=== PATIENT | male | born 1985 | race Caucasian/White ===

== ENCOUNTER 2021-11-27 20:09 | Emergency (ER) | payer OTHER, MEDICAID, SELFPAY ==
[2021-11-27 20:12] VITALS: BP 130/60; PULSE 106; RESP 16; TEMP 36.9; O2SAT 97
[2021-11-27 21:11] LABS: Add Manual Diff / Slide Review NO; Alanine Aminotransferase 18 IU/L (<50); Albumin 3.7 g/dL (3.5-5.0); Albumin Globulin Ratio 1.4 (1.0-2.8); Alkaline Phosphatase 52 U/L (38-126); Aspartate Aminotransferase 34 IU/L (17-59); BUN Creatinine Ratio 21.1 (6-22); Basophils Absolute Auto 100 /uL (0-100); Basophils Percent Auto 1.1 % (0-2); Bilirubin Total 0.4 mg/dL (0.2-1.3); Blood Urea Nitrogen 15 mg/dL (9-20); Calcium 8.1 mg/dL (8.4-10.2); Carbon Dioxide 28 mmol/L (22-32); Chloride 103 mmol/L (98-107); Eosinophils Absolute Auto 0 /uL (0-450); Eosinophils Percent Auto 0.2 % (2-4); Estimated Glomerular Filt Rate > 60 mL/min (>60); Globulin 2.7 g/dL (1.7-4.1); Glucose 99 mg/dL (70-100); HEMOLYSIS < 15 (0-50); Hematocrit 40.9 % (41-53); Hemoglobin 14.1 g/dL (13.5-17.5); Lymphocytes Absolute Auto 3400 /uL (1100-4500); Mean Corpuscular HGB Conc 34.4 % (30-36); Mean Corpuscular Hemoglobin 30.9 PG (26-34); Monocytes Absolute Auto 600 /uL (0-900); Monocytes Percent Auto 5.5 % (3-14); Neutrophils Absolute Auto 6800 /uL (1500-7000); Neutrophils Percent Auto 62.2 % (50-75); Platelet Count 301 X10^3/uL (150-400); Potassium 3.5 mmol/L (3.4-5.1); Red Blood Cell Count 4.54 X10^6/uL (4.5-5.9); Red Cell Distribution Width 13.3 % (11.6-14.8); Sodium 144 mmol/L (137-145); Total Protein 6.4 g/dL (6.3-8.2); White Blood Cell Count 10.9 X10^3/uL (4.5-11.0)
[2021-11-27 22:00] VITALS: BP 110/72; PULSE 102; RESP 20; O2SAT 97
[2021-11-27 23:00] VITALS: BP 109/67; PULSE 109; RESP 16; O2SAT 96
[2021-11-28] VITALS: BP 108/63; PULSE 95; RESP 16; O2SAT 95
--- NOTE | 2021-11-28 00:35 | PC.NURSE ---
pt aao x 3 ambulating out to nurses' station gait steady
[2021-11-28 00:38] LABS: Bilirubin Urine UA NEGATIVE (NEGATIVE); Color Urine UA YELLOW; Glucose Urine UA NEGATIVE (Negative); Ketones Urine UA NEGATIVE (NEGATIVE); Leukocyte Esterase Urine UA NEGATIVE (NEGATIVE); Nitrite Urine UA NEGATIVE (Negative); Occult Blood Urine UA NEGATIVE (Negative); Protein Urine UA TRACE (Negative); Urobilinogen Urine UA 0.2 E.U./dL (0.2); pH Urine UA 7.5 (4.5-8.0)
[2021-11-28 00:43] LABS: Appearance Urine UA Slightly Cloudy
[2021-11-28 00:49] LABS: RBC Urine None Seen (0-5/HPF); WBC Urine None Seen (0-5/HPF)
[2021-11-28 00:50] LABS: Amorphous Sediment Urine 4+; Bacteria Urine None Seen; Culture Indicated Urine Cult Not Indicated
--- NOTE | 2021-11-28 01:36 | PC.NURSE ---
Pt tolerated water by mouth.
[2021-11-28 02:00] VITALS: BP 101/62; PULSE 99; RESP 16; O2SAT 96
--- NOTE | 2021-11-28 02:04 | ED_ITS ---
HPI - Alcohol General Chief Complaint: Toxicology Problem Stated Complaint: alcohol intoxication Time Seen by Provider: 11/27/21 20:10 History of Present Illness HPI narrative: 36-year-old male nonsmoker presents by EMS after consuming a large amount of alcohol being found outside a local bar after vomiting. He denies any injury or other drugs. He states he drinks relatively frequently but had a bit more tonight while celebrating. He denies any fall or injury and states he started vomiting and sat down on the sidewalk at which point EMS was called. Review of Systems Review of Systems Narrative: GENERAL: Denies chills, fatigue, malaise, fever, sweats. HEENT: Denies sinus pain, ear pain, sore throat, difficulty swallowing, dizziness. RESPIRATORY: Denies dyspnea, cough, wheezing, hemoptysis, sputum. CARDIOVASCULAR: Denies chest pain, palpitations, orthopnea, edema, GASTROINTESTINAL: See HPI : Denies dysuria, frequency, incontinence, hematuria, urinary retention. MUSCULOSKELETAL: denies weakness, joint pain, or bony pain SKIN: Denies rash, skin lesions, or other NEUROLOGIC: Denies weakness, headache, numbness, change in speech, confusion, seizures, incoordination. PSYCHIATRIC: No concerning psychosocial issues. 12 point review of systems is negative except for those stated above Exam Narrative Exam Narrative: GENERAL: [36] year old patient appears stated age. Well-developed patient, in mild distress. Holding an emesis bag, slurring his words, smells of alcohol HEAD: Atraumatic. Normocephalic. No contusion, abrasion or evidence of depressed skull fracture EYES: Pupils equal round and reactive. Extraocular motions intact. No scleral icterus. No injection or drainage. ENT: Nose without bleeding, purulent drainage. Throat without erythema, tonsillar hypertrophy or exudate. Airway patent. NECK: Trachea midline. Non tender CARDIOVASCULAR: Regular rate and rhythm without murmurs, gallops, or rubs. RESPIRATORY: Clear to auscultation. Breath sounds equal bilaterally. No wheezes, rales, or rhonchi. GASTROINTESTINAL: Abdomen soft, non-tender, nondistended. EXTREMITIES: No edema or joint tenderness. BACK: Nontender without deformity or crepitance. No flank tenderness. NEURO: AOx3. SKIN: No rash or erythema of visible areas Initial Vital Signs Initial Vital Signs: Vital Signs Temperature 98.4 F 11/27/21 20:12 Pulse Rate 106 H 11/27/21 20:12 Respiratory Rate 16 11/27/21 20:12 Blood Pressure 130/60 11/27/21 20:12 Pulse Oximetry 97 11/27/21 20:12 Oxygen Delivery Method 11/27/21 20:12 Course Orders Ordered: ED Orders 11/27/21 20:50 CBC Auto Diff [Complete Blood Count AUTO DIFF] Stat CMP [Comprehensive Metabolic Panel] Stat 11/28/21 00:20 Urinalysis and Microscopic Stat Reevaluation(s) Reevaluation #1: Patient continues to improve, he is now speaking clearly without slurring words, able to ambulate straight line and tolerating orals. Reevaluation #2: patient requesting DC. He does NOT want to call anyone, states he is only a few blocks away. He continues to speak clearly without slurring and is able to ambulate in a straight line with a steady gait. He demonstrates capacity to make this decision. Vital Signs Vital signs: Vital Signs - 8 hr 11/27/21 20:12 11/27/21 22:00 Temperature 98.4 F Pulse Rate 106 H 102 H Respiratory Rate 16 20 Blood Pressure 130/60 110/72 Pulse Oximetry 97 97 Oxygen Delivery Method Room Air Room Air MDM - Alcohol Lab Data Result diagrams: 11/27/21 20:50 11/27/21 20:50 Labs: Lab Results 11/27/21 11/27/21 11/28/21 Range/Units 20:50 20:50 00:20 WBC 10.9 (4.5-11.0) X10^3/uL RBC 4.54 (4.5-5.9) X10^6/uL Hgb 14.1 (13.5-17.5) g/dL Hct 40.9 L (41-53) % MCV 90.0 (80-100) fL MCH 30.9 (26-34) PG MCHC 34.4 (30-36) % RDW 13.3 (11.6-14.8) % Plt Count 301 (150-400) X10^3/uL Neut % (Auto) 62.2 (50-75) % Lymph % (Auto) 31.0 (25-40) % [place] % (Auto) 5.5 (3-14) % Eos % (Auto) 0.2 L (2-4) % Baso % (Auto) 1.1 (0-2) % Neut # (Auto) 6800 (5835-0022) /uL Lymph # (Auto) 3400 (6127-0306) /uL [place] # (Auto) 600 (0-900) /uL Eos # (Auto) 0 (0-450) /uL Baso # (Auto) 100 (0-100) /uL Sodium 144 (137-145) mmol/L Potassium 3.5 (3.4-5.1) mmol/L Chloride 103 (98-107) mmol/L Carbon Dioxide 28 (22-32) mmol/L BUN 15 (9-20) mg/dL Creatinine 0.71 (0.66-1.25) mg/dL Estimated GFR > 60 (>60) mL/min BUN/Creatinine Ratio 21.1 (6-22) Glucose 99 (70-100) mg/dL Calcium 8.1 L (8.4-10.2) mg/dL Total Bilirubin 0.4 (0.2-1.3) mg/dL AST 34 (17-59) IU/L ALT 18 (<50) IU/L Alkaline Phosphatase 52 (38-126) U/L Total Protein 6.4 (6.3-8.2) g/dL Albumin 3.7 (3.5-5.0) g/dL Globulin 2.7 (1.7-4.1) g/dL Albumin/Globulin Ratio 1.4 (1.0-2.8) Urine Color Yellow Urine Appearance Slightly cloudy Urine pH 7.5 (4.5-8.0) Ur Specific [place] 1.010 (1.000-1.035) Urine Protein Trace H (Negative) Urine Glucose (UA) Negative (Negative) g/dL Urine Ketones Negative (NEGATIVE) Urine Occult Blood Negative (Negative) Urine Nitrate Negative (Negative) Urine Bilirubin Negative (NEGATIVE) Urine Urobilinogen 0.2 (0.2) E.U./dL Ur Leukocyte Esterase Negative (NEGATIVE) Urine RBC None seen (0-5/HPF) Urine WBC None seen (0-5/HPF) Amorphous Sediment 4+ Urine Bacteria None seen (None) Ur Culture Indicated? Cult not indicated Discharge Plan Departure Patient Disposition: Home Clinical Impression: Alcoholic intoxication Instructions: DI for Alcohol Use Disorder Activity Restrictions/Additional Instructions: *You have been diagnosed with [alcohol abuse] *What to do: *Please continue to take your regular medications as directed. [ ] New medication prescriptions sent to your pharmacy: [ ] [ ] New medication written as a paper prescription [x ] No new medications given *Please follow up with your primary care provider in 2-3 days, call for an appointment. Let them know you were seen in the Emergency Department and that we ask that you be seen in follow up. We will electronically transmit a record of today's note if your PCP is in our system *If you do not have a primary care provider please contact the [facility] Resource line at [phone]. They will ask some questions about your medical history and help get you set up with a doctor in the community. *Return to Emergency Department if you should have any new, worsening or concerning symptoms, such as [fever greater than 101 F, shaking chills, worsening pain, persistent vomiting or other bothersome symptoms]
== END 2021-11-28 02:21 | disposition home or self-care (01) ==
PROVIDERS: Emergency Provider Emergency Medicine
DX: F10.129 Alcohol abuse with intoxication, unspecified (principal)
CPT/HCPCS: 36415; 80053; 81001; 85025; 99281; 99283

== ENCOUNTER 2021-12-18 13:29 | Emergency (ER) | payer OTHER, MEDICAID, SELFPAY ==
--- NOTE | 2021-12-18 13:39 | ED.ALCOHOL ---
HPI - Alcohol General Chief Complaint: Toxicology Problem Stated Complaint: intoxicated Time Seen by Provider: 12/18/21 13:30 History of Present Illness HPI narrative: The patient is a 36-year-old male history of alcohol abuse presenting today with intoxication. He apparently had some vomiting as at home this morning he is living with his dad he recently got out of full treatment about 2 weeks ago dad took him back to help him get about on back on his feet. However he started drinking again. Vomited today. He then went to the [facility] local grocery store when he vomited in the store EMS was called. EMS reports no hematemesis. Possible suicidal ideation however patient is quite adamant about SI at this time. He was resistant to come in which required 3 police officers. He has no thoughts of homicide. He has clear speech. He does not want to be here. He is offered blood work IV fluids food which he declines at this time. Review of Systems Review of Systems Narrative: See HPI Exam Initial Vital Signs Initial Vital Signs: GENERAL: Alert thin 36-year-old male HEENT: Head atraumatic,EOMI, pupils reactive, face symmetric, moist mucous membranes CARDIOVASCULAR: Regular rate and rhythm without murmurs, rubs or gallops. RESPIRATORY: Breath sounds equal bilaterally, no wheezes rales or rhonchi. ABDOMEN: Soft, nontender. Normoactive bowel sounds all 4 quadrants. No guarding or rebound. EXTREMITIES: Normal range of motion, no clubbing or edema. Neurovascularly intact NEUROLOGICAL: Moving all extremities SKIN: Warm, dry, no laceration, no petechiae, no rashes or lesions. MDM - Alcohol MDM Narrative Medical decision making narrative: Patient is declining all care he is not suicidal or homicidal. He is intoxicated but has clear speech and steady gait. Does not meet any sort of involuntary criteria at this time. He refused vitals. I spoke on the phone with patient's dad he was quite concerned about him but understands the process. Patient walked out before anything could be done. Discharge Plan Departure Patient Disposition: Home Clinical Impression: Alcoholic intoxication Instructions: DI for Alcohol Use Disorder Visit Report Forms: Patient Portal/API
== END 2021-12-18 13:41 | disposition home or self-care (01) ==
PROVIDERS: Emergency Provider Emergency Medicine
DX: F10.129 Alcohol abuse with intoxication, unspecified (principal)
CPT/HCPCS: 99281

== ENCOUNTER 2021-12-20 03:03 | Emergency (ER) | payer OTHER, MEDICAID, SELFPAY ==
--- NOTE | 2021-12-20 03:13 | ED_ITS ---
HPI - Altered Mental Status <Abelino Love DO - Last Filed: 12/21/21 03:06> General Chief Complaint: Altered Mental Status Stated Complaint: Decreased LOC Time Seen by Provider: 12/20/21 03:11 History of Present Illness HPI narrative: 36-year-old male nonsmoker with history of alcohol abuse returns for evaluation. Patient was reportedly found outside and EMS was activated by [employer] for evaluation fearing that he is significantly intoxicated and a risk to harm himself. He has been vomiting and though guarding his airway is unable to demonstrate capacity to make his own decisions and was brought for evaluation. He was brought to the emergency department yesterday under similar circumstances and police and EMS had activated the [place] pathway but over the course of the visit he was able to demonstrate capacity and thought not to meet criteria. Per EMS on scene who has been in close contact with the patient's father he had recently come here from [place] as his mother stated that he can no longer stay with him. His father lives here locally and is apparently a mental health professional. There is report through EMS that he told him yesterday that he is unable to care for himself and poses a significant threat to himself and was an advocate for bringing the patient to the emergency department. Patient is awake but slurring words. He denies suicidal or homicidal ideation. He understands that he is in the hospital and he is asking for help getting into a detox facility Related Data Allergies Allergy/AdvReac Type Severity Reaction Status Date / Time No Known Drug Allergies Allergy Verified 12/20/21 18:52 Review of Systems <DO Silvio Charles Last Filed: 12/21/21 03:06> Review of Systems Narrative: GENERAL: Denies chills, fatigue, malaise, fever, sweats. HEENT: Denies sinus pain, ear pain, sore throat, difficulty swallowing, dizziness. RESPIRATORY: Denies dyspnea, cough, wheezing, hemoptysis, sputum. CARDIOVASCULAR: Denies chest pain, palpitations, orthopnea, edema, GASTROINTESTINAL: See HPI : Denies dysuria, frequency, incontinence, hematuria, urinary retention. MUSCULOSKELETAL: denies weakness, joint pain, or bony pain SKIN: Denies rash, skin lesions, or other NEUROLOGIC: Denies weakness, headache, numbness, change in speech, confusion, seizures, incoordination. PSYCHIATRIC: See HPI 12 point review of systems is negative except for those stated above Patient History <Abelino Love DO - Last Filed: 12/21/21 03:06> Social History Smoking Status: Unknown if ever smoked alcohol intake frequency: 3 or more drinks per day Alcohol type: beer Exam <Abelino Love DO - Last Filed: 12/21/21 03:06> Narrative Exam Narrative: GENERAL: [36] year old patient appears stated age. A bit disheveled, smells of alcohol, slurring his words but aware of his location and name, unaware of the date. HEAD: Atraumatic. Normocephalic. EYES: Pupils equal round and reactive. Extraocular motions intact. No scleral icterus. No injection or drainage. ENT: Nose without bleeding, purulent drainage. Throat without erythema, tonsillar hypertrophy or exudate. Airway patent. NECK: Trachea midline. Non tender CARDIOVASCULAR: Regular rate and rhythm without murmurs, gallops, or rubs. RESPIRATORY: Clear to auscultation. Breath sounds equal bilaterally. No wheezes, rales, or rhonchi. GASTROINTESTINAL: Abdomen soft, non-tender, nondistended. EXTREMITIES: No edema or joint tenderness. BACK: Nontender without deformity or crepitance. No flank tenderness. NEURO: Cranial nerves 2-12 grossly intact SKIN: No rash or erythema of visible areas Initial Vital Signs Initial Vital Signs: Vital Signs Temperature 97.3 F L 12/20/21 03:20 Pulse Rate 106 H 12/20/21 03:20 Respiratory Rate 12/20/21 03:20 Blood Pressure 124/74 12/20/21 03:20 Pulse Oximetry 97 12/20/21 03:20 Oxygen Delivery Method 12/20/21 03:20 <Zari Baldwin DO - Last Filed: 12/20/21 19:45> Initial Vital Signs Initial Vital Signs: Vital Signs Temperature 97.3 F L 12/20/21 03:20 Pulse Rate 106 H 12/20/21 03:20 Respiratory Rate 20 12/20/21 03:20 Blood Pressure 124/74 12/20/21 03:20 Pulse Oximetry 97 12/20/21 03:20 Oxygen Delivery Method 12/20/21 03:20 Course <DO Silvio Charles Last Filed: 12/21/21 03:06> Orders Ordered: Discontinued Medications Al Hydrox/Mg Hydrox/Simethicone 20 ml/ Lidocaine HCl 15 ml 0 ml PO NOW ONE Stop: 12/20/21 08:03 Last Admin: 12/20/21 08:38 Dose: Not Given Documented By: MICHAEL Ondansetron HCl (Ondansetron 4 Mg/2 Ml Inj) 4 mg IV NOW ONE Stop: 12/20/21 03:11 Last Admin: 12/20/21 03:30 Dose: 4 mg Documented By: CHARLEEN Ondansetron HCl (Ondansetron 4 Mg/2 Ml Inj) 4 mg IV Q2HR PRN PRN Reason: Nausea And Vomiting Vital Signs Vital signs: Vital Signs - 8 hr 12/20/21 03:20 12/20/21 04:53 Temperature 97.3 F L Pulse Rate 106 H 100 H Respiratory Rate 20 18 Blood Pressure 124/74 127/77 Pulse Oximetry 97 96 Oxygen Delivery Method Room Air Room Air <Zari Baldwin DO - Last Filed: 12/20/21 19:45> Orders Ordered: Discontinued Medications Al Hydrox/Mg Hydrox/Simethicone 20 ml/ Lidocaine HCl 15 ml 0 ml PO NOW ONE Stop: 12/20/21 08:03 Last Admin: 12/20/21 08:38 Dose: Not Given Documented By: MICHAEL Ondansetron HCl (Ondansetron 4 Mg/2 Ml Inj) 4 mg IV NOW ONE Stop: 12/20/21 03:11 Last Admin: 12/20/21 03:30 Dose: 4 mg Documented By: CHARLEEN Ondansetron HCl (Ondansetron 4 Mg/2 Ml Inj) 4 mg IV Q2HR PRN PRN Reason: Nausea And Vomiting Vital Signs Vital signs: Vital Signs - 8 hr 12/20/21 03:20 12/20/21 04:53 Temperature 97.3 F L Pulse Rate 106 H 100 H Respiratory Rate 20 18 Blood Pressure 124/74 127/77 Pulse Oximetry 97 96 Oxygen Delivery Method Room Air Room Air MDM - Altered Mental Status <DO Silvio Charles Last Filed: 12/21/21 03:06> Lab Data Result diagrams: 12/20/21 03:15 12/20/21 03:15 Labs: Lab Results 12/20/21 12/20/2112/20/22 Range/Units 03:15 03:15 03:15 WBC 10.7 (4.5-11.0) X10^3/uL RBC 4.56 (4.5-5.9) X10^6/uL Hgb 14.1 (13.5-17.5) g/dL Hct 40.9 L (41-53) % MCV 89.8 (80-100) fL MCH 30.9 (26-34) PG MCHC 34.5 (30-36) % RDW 14.2 (11.6-14.8) % Plt Count 339 (150-400) X10^3/uL Neut % (Auto) 66.1 (50-75) % Lymph % (Auto) 27.5 (25-40) % [place] % (Auto) 6.0 (3-14) % Eos % (Auto) 0.1 L (2-4) % Baso % (Auto) 0.3 (0-2) % Neut # (Auto) 7100 H (4735-4925) /uL Lymph # (Auto) 2900 (5569-2548) /uL [place] # (Auto) 600 (0-900) /uL Eos # (Auto) 0 (0-450) /uL Baso # (Auto) 0 (0-100) /uL Sodium 146 H (137-145) mmol/L Potassium 3.7 (3.4-5.1) mmol/L Chloride 104 (98-107) mmol/L Carbon Dioxide 31 (22-32) mmol/L BUN 13 (9-20) mg/dL Creatinine 0.60 L (0.66-1.25) mg/dL Estimated GFR > 60 (>60) mL/min BUN/Creatinine Ratio 21.7 (6-22) Glucose 98 (70-100) mg/dL Calcium 7.8 L (8.4-10.2) mg/dL Total Bilirubin 0.5 (0.2-1.3) mg/dL AST 78 H (17-59) IU/L ALT 38 (<50) IU/L Alkaline Phosphatase 58 (38-126) U/L Total Protein 6.9 (6.3-8.2) g/dL Albumin 4.1 (3.5-5.0) g/dL Globulin 2.8 (1.7-4.1) g/dL Albumin/Globulin Ratio 1.5 (1.0-2.8) Lipase 376 H (23-300) U/L Ethyl Alcohol 476 H* ( - 10) mg/dL <Zari Baldwin, DO - Last Filed: 12/20/21 19:45> Lab Data Labs: Lab Results 12/20/21 12/20/21 12/20/21 Range/Units 03:15 03:15 03:15 WBC 10.7 (4.5-11.0) X10^3/uL RBC 4.56 (4.5-5.9) X10^6/uL Hgb 14.1 (13.5-17.5) g/dL Hct 40.9 L (41-53) % MCV 89.8 (80-100) fL MCH 30.9 (26-34) PG MCHC 34.5 (30-36) % RDW 14.2 (11.6-14.8) % Plt Count 339 (150-400) X10^3/uL Neut % (Auto) 66.1 (50-75) % Lymph % (Auto) 27.5 (25-40) % [place] % (Auto) 6.0 (3-14) % Eos % (Auto) 0.1 L (2-4) % Baso % (Auto) 0.3 (0-2) % Neut # (Auto) 7100 H (3301-9629) /uL Lymph # (Auto) 2900 (9471-8091) /uL [place] # (Auto) 600 (0-900) /uL Eos # (Auto) 0 (0-450) /uL Baso # (Auto) 0 (0-100) /uL Sodium 146 H (137-145) mmol/L Potassium 3.7 (3.4-5.1) mmol/L Chloride 104 (98-107) mmol/L Carbon Dioxide 31 (22-32) mmol/L BUN 13 (9-20) mg/dL Creatinine 0.60 L (0.66-1.25) mg/dL Estimated GFR > 60 (>60) mL/min BUN/Creatinine Ratio 21.7 (6-22) Glucose 98 (70-100) mg/dL Calcium 7.8 L (8.4-10.2) mg/dL Total Bilirubin 0.5 (0.2-1.3) mg/dL AST 78 H (17-59) IU/L ALT 38 (<50) IU/L Alkaline Phosphatase 58 (38-126) U/L Total Protein 6.9 (6.3-8.2) g/dL Albumin 4.1 (3.5-5.0) g/dL Globulin 2.8 (1.7-4.1) g/dL Albumin/Globulin Ratio 1.5 (1.0-2.8) Lipase 376 H (23-300) U/L Ethyl Alcohol 476 H* ( - 10) mg/dL MDM Narrative Medical decision making narrative: MALDONADONICK-patient signed out to me by Dr. Love of seen evaluated patient myself. He is awake alert he has a steady gait. His 2nd visit to the ED in about 2 days for alcohol intoxication. He denies suicidal ideations or homicidal ideations. Patient is adamant about leaving. States that his mom will help get him into detox. He is offered social work your help getting into detox here. At this time he does not meet involuntary criteria. If repeat visit may consider a [facility] Discharge Plan Departure Patient Disposition: Home Clinical Impression: Alcoholic intoxication Instructions: Alcohol Use Disorder Activity Restrictions/Additional Instructions: *You have been diagnosed with alcohol intoxication *What to do: I strongly encourage you to go to detox and withdrawal from alcohol do not do this on your own *Continue to take medications as directed *Follow up with your primary care provider in 2-3 days or call [phone] *Return to ER if you should have any new, worsening or concerning symptoms Visit Report Forms: Patient Portal/API
[2021-12-20 03:20] VITALS: BP 124/74; PULSE 106; RESP 20; TEMP 36.3; O2SAT 97
[2021-12-20 03:24] LABS: Add Manual Diff / Slide Review NO; Basophils Absolute Auto 0 /uL (0-100); Basophils Percent Auto 0.3 % (0-2); Eosinophils Absolute Auto 0 /uL (0-450); Eosinophils Percent Auto 0.1 % (2-4); Hematocrit 40.9 % (41-53); Hemoglobin 14.1 g/dL (13.5-17.5); Lymphocytes Absolute Auto 2900 /uL (1100-4500); Lymphocytes Percent Auto 27.5 % (25-40); Mean Corpuscular HGB Conc 34.5 % (30-36); Mean Corpuscular Hemoglobin 30.9 PG (26-34); Mean Corpuscular Volume 89.8 fL (80-100); Monocytes Absolute Auto 600 /uL (0-900); Neutrophils Absolute Auto 7100 /uL (1500-7000); Neutrophils Percent Auto 66.1 % (50-75); Platelet Count 339 X10^3/uL (150-400); Red Blood Cell Count 4.56 X10^6/uL (4.5-5.9); Red Cell Distribution Width 14.2 % (11.6-14.8); White Blood Cell Count 10.7 X10^3/uL (4.5-11.0)
[2021-12-20 03:28] LABS: Alanine Aminotransferase 38 IU/L (<50); Albumin 4.1 g/dL (3.5-5.0); Albumin Globulin Ratio 1.5 (1.0-2.8); Alkaline Phosphatase 58 U/L (38-126); Aspartate Aminotransferase 78 IU/L (17-59); BUN Creatinine Ratio 21.7 (6-22); Bilirubin Total 0.5 mg/dL (0.2-1.3); Blood Urea Nitrogen 13 mg/dL (9-20); Calcium 7.8 mg/dL (8.4-10.2); Carbon Dioxide 31 mmol/L (22-32); Chloride 104 mmol/L (98-107); Estimated Glomerular Filt Rate > 60 mL/min (>60); Globulin 2.8 g/dL (1.7-4.1); Glucose 98 mg/dL (70-100); HEMOLYSIS 33 (0-50); Potassium 3.7 mmol/L (3.4-5.1); Sodium 146 mmol/L (137-145); Total Protein 6.9 g/dL (6.3-8.2)
[2021-12-20] MEDS: ONDANSETRON 4 MG/2 ML INJ IV (03:30)
[2021-12-20 03:42] LABS: Ethanol (ETOH) 476 mg/dL
[2021-12-20 04:53] VITALS: BP 127/77; PULSE 100; RESP 18; O2SAT 96
[2021-12-20 08:00] VITALS: BP 110/65; PULSE 77; RESP 18; O2SAT 98
[2021-12-20 08:00] LABS: Lipase 376 U/L (23-300)
== END 2021-12-20 08:40 | disposition home or self-care (01) ==
PROVIDERS: Emergency Medicine; Emergency Provider Emergency Medicine
DX: F10.129 Alcohol abuse with intoxication, unspecified (principal); Y90.8 Blood alcohol level of 240 mg/100 ml or more
CPT/HCPCS: 80053; 80320; 83690; 85025; 93005; J2405

== ENCOUNTER 2021-12-20 18:29 | Emergency (ER) | payer OTHER, MEDICAID, SELFPAY ==
[2021-12-20 18:40] VITALS: BP 134/68; PULSE 108; RESP 20; O2SAT 96; BMI 21.7
--- NOTE | 2021-12-20 18:50 | DI.CT.S_ITS ---
PROCEDURE: CT HEAD/BRAIN WO CON INDICATIONS: dizzy TECHNIQUE: Noncontrast 4.5 mm thick angled axial sections acquired from the foramen magnum to the vertex, with coronal and sagittal reformats. For radiation dose reduction, the following was used: automated exposure control, adjustment of mA and/or kV according to patient size. COMPARISON: None. FINDINGS: Image quality: Mild streak artifact can be seen through the skull base. CSF spaces: Basal cisterns are patent. No extra-axial fluid collections. Ventricles are normal in size and shape. Brain: No midline shift. No intracranial masses or hemorrhage. Johnson-white matter interface is normal. Skull and face: Calvarium and visualized facial bones are intact, without suspicious lesions. Sinuses: Visualized sinuses and mastoids are clear. IMPRESSION: Unremarkable noncontrast head CT. Dictated by: Geo Del Angel M.D. on 12/20/2021 at 18:04 Approved by: Geo Del Angel M.D. on 12/20/2021 at 18:05
[2021-12-20] MEDS: ONDANSETRON 4 MG/2 ML INJ IV (19:18)
[2021-12-20] MEDS: SODIUM CHLORIDE 0.9% 1,000 ML 1000 ML IV (19:18)
[2021-12-20 19:22] VITALS: PULSE 84; O2SAT 100
[2021-12-20 19:23] VITALS: BP 137/69; PULSE 82; RESP 21; O2SAT 100
--- NOTE | 2021-12-20 19:24 | CM.SWNOTE ---
ADVANCE AGENT Assessment ADVANCE AGENT - Die Keeper Assessment ADVANCE AGENT/Die Keeper Assessment Time Spent with Patient Start date 12/20/21 Visit Start Time 18:40 End date 12/20/21 Visit End Time 18:55 Total time Care Management spent on 15 minutes patient visit-in minutes Substance Abuse Screening Include Onset, Duration, Intensity Presenting Problem Patient presents to ED due to concern for stroke symptoms. Per patient and patient's father they were on their way to [facility] facility when patient presented with these symptoms. Patient endorses his face and legs are tingling all over and he is numb and sore. Precipitating Event(s) Patient endorses his last drink was yesterday afternoon. Patient states he is experiencing shakes nausea and throwing up. This is patient' s 2nd ED visit today and patient has 3 visits this month in regards to ETOH. Patient Strengths Patient is seeking help and has detox bed available for him this evening. Current Behavioral Health Provider(s) Patient endorses he used to Include Facility, Provider, Ph. # have a therapist and psychiatrist in [place]. Patient endorses he does SAMAN outpatient services with [facility] in [place]. Family Hx of Behavioral Abuse None reported Rehab Facilities? ((Date(s), Location(s) Patient endorses hx of detox ) at [facility] and hx of inpatient. History of Withdrawal? Seizures? Patient presents with shakiness, nausea, and throwing up symptoms. Psychosocial information & Support Patient is 36 y/o male who is Systems currently residing with his father in [place], patient states he was previously living in [place]. Patient identified his mother and father as supports. School/Work Patient not currently working Legal Concerns Legal Matters - Outstanding Issues None reported Mental Status Orientation (Person/Place/Time) A/O to person, place and self. Patient not able to identify date. Stated Mood sore Affect (Congruent with Mood?) anxious/euthymic, full range, congruent with mood Thought Content - Specify/Describe None reported Obsessions, Delusions, Hallucinations Thought Processes (Ssbnqgp-Mluuwtmq-Bcdv coherent Cfdlnash-Pqqrnqiz-Teuihhdndq- Oovymcpvsltwuk-Jbbeljn-Rgpzbihaxska- Thought Blocking) Speech (Mgpgae-Skne-Emjguou-Rapid-Soft- slow/shaky Loud-Pressured) Motor (Volypv-Wvftuxqdq-Yohe-Other) Patient presents as shaky, congruent with concern for presentation to ED. Insight (Nnmb-Zbrq-Dqqc/Limited) fair Judgement (Oavd-Qozt-Lyrg/Limited) fair Impulse Control (Adequate-Impaired) adequate Memory (Tvjnnjazj-Akcwyj-Fnzmor, fairly intact, patient does Impaired-Intact) not recall today's date. Concentration (Intact-Impaired) intact Attention (Intact-Impaired) intact Behavior (Appropriate-Inappropriate) appropriate Additional Comment Patient presents as calm, cooperative and communicative. Risk Assessment Suicidal Ideation (Plan) No Homicidal Ideation (Plan) No Comment Patient denies HI and SI. Patient endorses and agrees with statement from earlier that he called his mother a few days ago and stated that he wanted to kill himself. Patient endorses this statement was made when he was under the influence of ETOH. Intervention Intervention ADVANCE AGENT enters triage room to meet with patient, present in room is women nurse, and patient's father. Patient endorses agreement to discuss patient's presentation with ADVANCE AGENT in room . Patient endorses his concern for stroke symptoms, patient and father endorse that they were on their way to patient's secured bed at [facility] facility for 1899. ADVANCE AGENT calls [facility] regarding patient and it is reported that patient will still have secured bed if medical clearance d/c paperwork is faxed to them and father or patient call upon d/c and when they are on their way to [facility] detox facility. Patient denies interest in inpatient treatment, but states he plans to continue IOP with [facility] upon d/ c from detox. It is the opinion of this ADVANCE AGENT that patient is appropriate for and will benefit from detox stabilization. Patient's father agrees to provide ride for patient to detox facility. ADVANCE AGENT to review the above with ED provider Dr. Love. Plan RA Plan Patient to d/c with father upon medical clearance, father to transport patient to [facility] facility. ED team to fax records to [facility]. JEFERSON Price
[2021-12-20 19:25] LABS: Add Manual Diff / Slide Review NO; Basophils Absolute Auto 100 /uL (0-100); Basophils Percent Auto 1.2 % (0-2); Eosinophils Absolute Auto 0 /uL (0-450); Hematocrit 35.1 % (41-53); Hemoglobin 12.4 g/dL (13.5-17.5); Lymphocytes Absolute Auto 2000 /uL (1100-4500); Lymphocytes Percent Auto 19.2 % (25-40); Mean Corpuscular HGB Conc 35.2 % (30-36); Mean Corpuscular Hemoglobin 31.1 PG (26-34); Mean Corpuscular Volume 88.2 fL (80-100); Monocytes Absolute Auto 600 /uL (0-900); Monocytes Percent Auto 5.6 % (3-14); Neutrophils Absolute Auto 7800 /uL (1500-7000); Platelet Count 309 X10^3/uL (150-400); Red Blood Cell Count 3.98 X10^6/uL (4.5-5.9); Red Cell Distribution Width 13.6 % (11.6-14.8); White Blood Cell Count 10.5 X10^3/uL (4.5-11.0)
[2021-12-20 19:30] VITALS: BP 132/61; PULSE 76; O2SAT 98
[2021-12-20 19:37] LABS: Acetaminophen < 10 ug/mL (10-30); Alanine Aminotransferase 36 IU/L (<50); Albumin 4.4 g/dL (3.5-5.0); Albumin Globulin Ratio 1.6 (1.0-2.8); Alkaline Phosphatase 67 U/L (38-126); Aspartate Aminotransferase 60 IU/L (17-59); BUN Creatinine Ratio 22.4 (6-22); Bilirubin Total 1.7 mg/dL (0.2-1.3); Blood Urea Nitrogen 13 mg/dL (9-20); Calcium 8.8 mg/dL (8.4-10.2); Carbon Dioxide 25 mmol/L (22-32); Chloride 94 mmol/L (98-107); Estimated Glomerular Filt Rate > 60 mL/min (>60); Ethanol (ETOH) < 10 mg/dL; Globulin 2.7 g/dL (1.7-4.1); Glucose 142 mg/dL (70-100); HEMOLYSIS 19 (0-50); Potassium 2.8 mmol/L (3.4-5.1); Salicylate < 1.0 mg/dL (<20); Sodium 131 mmol/L (137-145); Total Protein 7.1 g/dL (6.3-8.2)
--- NOTE | 2021-12-20 19:45 | ED_ITS ---
HPI - Alcohol General Chief Complaint: Toxicology Problem Stated Complaint: STOKE TINGLING OF FACE AND HANDS Time Seen by Provider: 12/20/21 18:50 Source: patient Mode of arrival: Wheelchair History of Present Illness HPI narrative: 36-year-old male heavy drinker returns for the 3rd time in 2 days with a chief complaint of feeling dizzy with tingling of his face and hands. He was discharged this morning after sobering up and states he went home and has been vomiting countless times. He has a mild headache but denies any chest pain or shortness of breath. He denies abdominal pain but is nauseated. He denies any suicidal or homicidal ideation. He denies any visual or auditory hallucinations. He feels a bit sweaty, shaky, anxious and agitated. He is requesting help with detox. His last drink was sometime yesterday afternoon. He states he has been drinking upwards of 1/5 of vodka per day including some beers for the past 4-5 days. He was last in any kind of detox program for 5 months ago. He is gone through withdrawals in the past but has never had any seizures. He denies any trauma, falls or injury Related Data Allergies Allergy/AdvReac Type Severity Reaction Status Date / Time No Known Drug Allergies Allergy Verified 12/20/21 18:52 Review of Systems Review of Systems Narrative: GEN: See HPI HEENT: Denies sinus pain, ear pain, sore throat, difficulty swallowing, dizziness. RESPIRATORY: Denies dyspnea, cough, wheezing, hemoptysis, sputum. CARDIOVASCULAR: See HPI, GASTROINTESTINAL: See HPI : Denies dysuria, frequency, incontinence, hematuria, urinary retention. MUSCULOSKELETAL: See HPI SKIN: Denies rash, skin lesions, or other NEUROLOGIC: See HPI PSYCHIATRIC: No concerning psychosocial issues. 12 point review of systems is negative except for those stated above Patient History Social History Smoking Status: Unknown if ever smoked Smoking Status: Unknown if ever smoked alcohol intake frequency: 3 or more drinks per day Alcohol type: beer Substance Use Type: unknown Exam Narrative Exam Narrative: GENERAL: [36] year old patient appears stated age. Well-developed patient, in mild distress. A bit shaky and tremulous, anxious HEAD: Atraumatic. Normocephalic. EYES: Pupils equal round and reactive. Extraocular motions intact. No scleral icterus. No injection or drainage. ENT: Nose without bleeding, purulent drainage. Throat without erythema, tonsillar hypertrophy or exudate. Airway patent. NECK: Trachea midline. Non tender CARDIOVASCULAR: Regular rate and rhythm without murmurs, gallops, or rubs. RESPIRATORY: Clear to auscultation. Breath sounds equal bilaterally. No wheezes, rales, or rhonchi. GASTROINTESTINAL: Abdomen soft, non-tender, nondistended. EXTREMITIES: Carpal pedal spasms are present, tremors noted with arms extended BACK: Nontender without deformity or crepitance. No flank tenderness. NEURO: AOx3. SKIN: Minimal diaphoresis No rash or erythema of visible areas Initial Vital Signs Initial Vital Signs: Vital Signs Pulse Rate 108 H 12/20/21 18:40 Respiratory Rate 20 12/20/21 18:40 Blood Pressure 134/68 12/20/21 18:40 Pulse Oximetry 96 12/20/21 18:40 Oxygen Delivery Method 12/20/21 18:40 Course Course Course Narrative: [facility] for Alcohol Withdrawal from [facility] on 12/20/2021 All calculations should be rechecked by clinician prior to use RESULT SUMMARY: 22 points Patients with scores >=0 frequently require medication for withdrawal, and may also require admission to the ICU for observation for seizures or development of delirium tremens, and more frequent medication dosing. INPUTS: Nausea/vomiting ?> 6 = (More severe symptoms) Tremor ?> 4 = Moderate, with patient's arms extended Paroxysmal sweats ?> 3 = (More severe symptoms) Anxiety ?> 4 = Moderately anxious, or guarded, so anxiety is inferred Agitation ?> 3 = (More severe symptoms) Tactile disturbances ?> 0 = None Auditory disturbances ?> 0 = Not present Visual disturbances ?> 0 = Not present Headache/fullness in head ?> 2 = Mild Orientation/clouding of sensorium ?> 0 = Oriented, can do serial additions Orders Ordered: ED Orders 12/20/21 23:04 BMP [Basic Metabolic Panel] Stat Discontinued Medications Sodium Chloride (Normal Saline 0.9%) 1,000 mls @ 1,000 mls/hr IV BOLUS ONE Stop: 12/20/21 19:49 Last Infusion: 12/20/21 20:28 Dose: 0 mls/hr Documented By: Admin: 12/20/21 19:18 Dose: 1,000 mls/hr Documented By: MICHAEL Thiamine HCl 200 mg/ Sodium (Chloride) 102 mls @ 408 mls/hr IV NOW ONE Stop: 12/20/21 20:02 Last Infusion: 12/20/21 21:08 Dose: 0 mls/hr Documented By: Admin: 12/20/21 20:40 Dose: 408 mls/hr Documented By: WILEY Ondansetron HCl (Ondansetron 4 Mg/2 Ml Inj) 4 mg IV NOW ONE Stop: 12/20/21 19:15 Last Admin: 12/20/21 19:18 Dose: 4 mg Documented By: MICHAEL Phenobarbital (Phenobarbital 65 Mg/Ml Vial) 260 mg IV NOW ONE Stop: 12/20/21 20:10 Last Admin: 12/20/21 20:20 Dose: 260 mg Documented By: WILEY Potassium Chloride (Potassium Chloride 20 Meq/15 Ml Udc) 40 meq PO NOW ONE Stop: 12/20/21 19:57 Last Admin: 12/20/21 20:16 Dose: 40 meq Documented By: WILEY Potassium Chloride (Potassium Chloride 20 Meq Tab) 40 meq PO NOW ONE Stop: 12/20/21 19:57 Last Admin: 12/20/21 20:18 Dose: 40 meq Documented By: WILEY Reevaluation(s) Reevaluation #1: Patient has significant improvement in symptoms after above-stated therapies. His CIWA is greatly improved, no longer shaky or tremulous. Electrolytes have been repeated and are within the normal range. He is now medically cleared and appropriate for transfer to the detox facility Vital Signs Vital signs: Vital Signs - 8 hr 12/21/21 01:13 Temperature 98.5 F Pulse Rate 59 L Respiratory Rate 20 Blood Pressure 134/59 L Pulse Oximetry 95 Oxygen Delivery Method Room Air MDM - Alcohol Lab Data Result diagrams: 12/20/21 19:05 12/20/21 23:04 Labs: Lab Results 12/20/21 12/20/21 12/20/21 Range/Units 19:05 19:05 19:05 WBC 10.5 (4.5-11.0) X10^3/uL RBC 3.98 L (4.5-5.9) X10^6/uL Hgb 12.4 L (13.5-17.5) g/dL Hct 35.1 L (41-53) % MCV 88.2 (80-100) fL MCH 31.1 (26-34) PG MCHC 35.2 (30-36) % RDW 13.6 (11.6-14.8) % Plt Count 309 (150-400) X10^3/uL Neut % (Auto) 74.0 (50-75) % Lymph % (Auto) 19.2 L (25-40) % [place] % (Auto) 5.6 (3-14) % Eos % (Auto) 0.0 L (2-4) % Baso % (Auto) 1.2 (0-2) % Neut # (Auto) 7800 H (5703-6081) /uL Lymph # (Auto) 2000 (6040-2338) /uL [place] # (Auto) 600 (0-900) /uL Eos # (Auto) 0 (0-450) /uL Baso # (Auto) 100 (0-100) /uL Sodium 131 L D (137-145) mmol/L Potassium 2.8 L (3.4-5.1) mmol/L Chloride 94 L (98-107) mmol/L Carbon Dioxide 25 (22-32) mmol/L BUN 13 (9-20) mg/dL Creatinine 0.58 L (0.66-1.25) mg/dL Estimated GFR > 60 (>60) mL/min BUN/Creatinine Ratio 22.4 H (6-22) Glucose 142 H (70-100) mg/dL Calcium 8.8 (8.4-10.2) mg/dL Magnesium 1.4 L (1.6-2.3) mg/dL Total Bilirubin 1.7 H (0.2-1.3) mg/dL AST 60 H (17-59) IU/L ALT 36 (<50) IU/L Alkaline Phosphatase 67 (38-126) U/L Total Protein 7.1 (6.3-8.2) g/dL Albumin 4.4 (3.5-5.0) g/dL Globulin 2.7 (1.7-4.1) g/dL Albumin/Globulin Ratio 1.6 (1.0-2.8) Salicylates < 1.0 (<20) mg/dL U Opiates 300ng/mL cut (Negative) Ur Oxycodone Screen (Negative) Urine Methadone Screen (Negative) Acetaminophen < 10 (10-30) ug/mL Ur Barbiturates Screen (Negative) U Tricyclic Antidepress (Negative) Ur Phencyclidine Scrn (Negative) Ur Amphetamines Screen (Negative) U Methamphetamines Scrn (Negative) Ur MDMA Scrn (Ecstasy) (Negative) U Benzodiazepines Scrn (Negative) Urine Cocaine Screen (Negative) U Marijuana (THC) Screen (Negative) Ethyl Alcohol < 10 ( - 10) mg/dL SARS-CoV-2 (PCR) (Negative) 12/20/21 12/20/21 12/20/21 Range/Units 19:23 21:00 23:04 WBC (4.5-11.0) X10^3/uL RBC (4.5-5.9) X10^6/uL Hgb (13.5-17.5) g/dL Hct (41-53) % MCV (80-100) fL MCH (26-34) PG MCHC (30-36) % RDW (11.6-14.8) % Plt Count (150-400) X10^3/uL Neut % (Auto) (50-75) % Lymph % (Auto) (25-40) % [place] % (Auto) (3-14) % Eos % (Auto) (2-4) % Baso % (Auto) (0-2) % Neut # (Auto) (4714-4570) /uL Lymph # (Auto) (0315-9268) /uL [place] # (Auto) (0-900) /uL Eos # (Auto) (0-450) /uL Baso # (Auto) (0-100) /uL Sodium 133 L (137-145) mmol/L Potassium 3.5 (3.4-5.1) mmol/L Chloride 97 L (98-107) mmol/L Carbon Dioxide 28 (22-32) mmol/L BUN 11 (9-20) mg/dL Creatinine 0.53 L (0.66-1.25) mg/dL Estimated GFR > 60 (>60) mL/min BUN/Creatinine Ratio 20.8 (6-22) Glucose 103 H (70-100) mg/dL Calcium 8.1 L (8.4-10.2) mg/dL Magnesium (1.6-2.3) mg/dL Total Bilirubin (0.2-1.3) mg/dL AST (17-59) IU/L ALT (<50) IU/L Alkaline Phosphatase (38-126) U/L Total Protein (6.3-8.2) g/dL Albumin (3.5-5.0) g/dL Globulin (1.7-4.1) g/dL Albumin/Globulin Ratio (1.0-2.8) Salicylates (<20) mg/dL U Opiates 300ng/mL cut Negative (Negative) Ur Oxycodone Screen Negative (Negative) Urine Methadone Screen Negative (Negative) Acetaminophen (10-30) ug/mL Ur Barbiturates Screen Positive H (Negative) U Tricyclic Antidepress Negative (Negative) Ur Phencyclidine Scrn Negative (Negative) Ur Amphetamines Screen Negative (Negative) U Methamphetamines Scrn Negative (Negative) Ur MDMA Scrn (Ecstasy) Negative (Negative) U Benzodiazepines Scrn Negative (Negative) Urine Cocaine Screen Negative (Negative) U Marijuana (THC) Screen Negative (Negative) Ethyl Alcohol ( - 10) mg/dL SARS-CoV-2 (PCR) Negative (Negative) Imaging Data CT scan - head: [facility]: [place] [address] CT Scan Report Signed Patient: Emmanuel Argueta MR#: [id number] : 1985 Acct:[id number] Age/Sex: 36 / M Date of Service: 12/20/21 Loc: ED Accession Number: [id number] ?? Procedure: CT head/brain wo con Ordering Provider: Abelino Love D.O. PROCEDURE:? CT HEAD/BRAIN WO CON ? INDICATIONS:? dizzy ? TECHNIQUE:? Noncontrast 4.5 mm thick angled axial sections acquired from the foramen magnum to the vertex, with coronal and sagittal reformats.? For radiation dose reduction, the following was used:? automated exposure control, adjustment of mA and/or kV according to patient size.? ? COMPARISON:? None. ? FINDINGS:? Image quality:? Mild streak artifact can be seen through the skull base. ? CSF spaces:? Basal cisterns are patent.? No extra-axial fluid collections.? Ventricles are normal in size and shape.? ? Brain:? No midline shift.? No intracranial masses or hemorrhage.? Johnson-white matter interface is normal.? ? Skull and face:? Calvarium and visualized facial bones are intact, without suspicious lesions.? ? Sinuses:? Visualized sinuses and mastoids are clear.? ? IMPRESSION:? Unremarkable noncontrast head CT. ? ? Dictated by: Geo Del Angel M.D. on 12/20/2021 at 18:04 ? ? Approved by: Geo Del Angel M.D. on 12/20/2021 at 18:05 ? Discharge Plan Departure Patient Disposition: Home Clinical Impression: Alcohol abuse, Acute hypokalemia Activity Restrictions/Additional Instructions: *You have been diagnosed with [medical clearance for admission to detox, alcohol abuse, hypokalemia] *What to do: *Please continue to take your regular medications as directed. [ ] New medication prescriptions sent to your pharmacy: [ ] [ ] New medication written as a paper prescription [ ] No new medications given *Please proceed directly to [facility] in [place], they are expecting you. Visit Report Forms: Patient Portal/API
[2021-12-20 20:00] VITALS: BP 131/85; PULSE 73; O2SAT 100
[2021-12-20] MEDS: POTASSIUM CHLORIDE 20 MEQ/15 ML UDC 40 MEQ PO (20:16)
[2021-12-20] MEDS: POTASSIUM CHLORIDE 20 MEQ TAB 40 MEQ PO (20:18)
[2021-12-20] MEDS: PHENobarbital 65 MG/ML VIAL 260 MG IV (20:20)
[2021-12-20 20:24] LABS: Magnesium 1.4 mg/dL (1.6-2.3)
[2021-12-20] MEDS: THIAMINE 200 MG in SODIUM CHLORIDE 0.9% 100 ML 408 MG IV (20:40)
[2021-12-20 21:30] LABS: COVID19 -Nasal RAPID Negative (Negative)
[2021-12-20 21:49] LABS: UR Morphine/Opiate cutoff 300 Negative (Negative); Ur Creatinine Normal (Normal); Ur Specific Gravity Normal (Normal); Urine Amphetamines Negative (Negative); Urine Benzodiazepines Negative (Negative); Urine Cocaine Negative (Negative); Urine MDMA Negative (Negative); Urine Methadone Negative (Negative); Urine Methamphetamines Negative (Negative); Urine Oxycodone Negative (Negative); Urine Phencyclidine Negative (Negative); Urine Tetrahydrocannabinol Negative (Negative); Urine Tricyclic Antidepressant Negative (Negative); Urine pH Normal (Normal)
[2021-12-20 21:50] LABS: Urine Barbiturates Positive (Negative)
[2021-12-20 22:19] VITALS: BP 120/80; PULSE 75; O2SAT 97
--- NOTE | 2021-12-20 23:14 | PC.NURSE ---
pt was given phenobarbital and then provided urine sample after.
[2021-12-20 23:25] LABS: BUN Creatinine Ratio 20.8 (6-22); Blood Urea Nitrogen 11 mg/dL (9-20); Calcium 8.1 mg/dL (8.4-10.2); Carbon Dioxide 28 mmol/L (22-32); Chloride 97 mmol/L (98-107); Estimated Glomerular Filt Rate > 60 mL/min (>60); Glucose 103 mg/dL (70-100); HEMOLYSIS < 15 (0-50); Potassium 3.5 mmol/L (3.4-5.1); Sodium 133 mmol/L (137-145)
[2021-12-21 01:13] VITALS: BP 134/59; PULSE 59; RESP 20; TEMP 36.9; O2SAT 95
== END 2021-12-21 01:23 | disposition home or self-care (01) ==
PROVIDERS: Emergency Provider Emergency Medicine
DX: F10.10 Alcohol abuse, uncomplicated (principal); Y90.2 Blood alcohol level of 40-59 mg/100 ml; E87.6 Hypokalemia; R42 Dizziness and giddiness; R11.2 Nausea with vomiting, unspecified; Z20.822 Contact with and (suspected) exposure to COVID-19; F10.129 Alcohol abuse with intoxication, unspecified; Y90.8 Blood alcohol level of 240 mg/100 ml or more
CPT/HCPCS: 36415; 70450; 80048; 80053; 80305; 80320; 80329; 83690; 83735; 85025; 87635; 93005; 96361; 96374; 96375; 96376; 99284; C9803; G0480; J2405; J2560